=== PATIENT | female | born 1950 | race Caucasian/White ===

== ENCOUNTER → 2016-08-07 | Outpatient (CLI) | payer BC ==
[~2016-08-07] MED LIST: CHOL400T6 PO; FERR-26 PO; LISI1TAB5 PO; NIAC500C6 PO; OMEG1CAP6 PO; POTA20LI27 PO; SELE200T10 PO; SIMV40TA3 PO; SULF1TAB24 PO; UBID50CA PO
--- NOTE | 2016-08-07 13:24 | KCIC ---
Bilateral digital screening mammograms: Reason for examination: Routine screening. Comparison is made to previous studies dated 10/19/2014 and 09/06/2012. The skin and nipples show no abnormalities. No abnormal axillary lymph nodes are seen. The breast parenchyma shows scattered fibroglandular density. (Breast density: Category B.) There are no dominant masses, suspicious calcifications or architectural distortions. A few benign calcifications are present. Impression: No evidence of malignancy. Recommend routine screening. BI-RADS category 2: Benign "Our facility is accredited by the [employer] Mammography [employer]." This patient's information has been entered into a reminder system for the patient to be notified with the results of her examination and a target date for the next mammogram. Electronically signed by: Yani Arnold MD (08/07/2016 1:20 PM)
--- NOTE | 2016-08-07 15:34 | KCIC ---
History: . Comparison: None. Findings: Bone Densitometry was performed with dual photon absorption of the lumbar spine and left femoral neck. Lumbar Spine: Bone density is 1.183 g/cm2 for L1-L4. T-Score is 1.2. Z-score is 3.0. Left Femoral Neck: Bone density is 0.914 g/cm2. T-Score is -0.2. Z-score is 1.0. IMPRESSION: Bone mineral density of the lumbar spine and left femoral neck appears within normal limits. World Health definition of osteoporosis and osteopenia: Normal = T-Score at or above -1.0; osteopenia = T-score between -1.0 and -2.5; osteoporosis = T-score at or below -2.5 Electronically signed by: Donny Woods MD (08/07/2016 3:31 PM)
== END | disposition home or self-care (01) ==
LOC: KCIC MAMMO 11:03
PROVIDERS: ATTEND Internal Medicine
DX: Z12.31 Encounter for screening mammogram for malignant neoplasm of breast (principal); Z01.419 Encounter for gynecological examination (general) (routine) without abnormal findings; Z78.0 Asymptomatic menopausal state
CPT/HCPCS: 77080; G0202; 77067

== ENCOUNTER → 2017-08-25 | Outpatient (CLI) | payer BC | END | disposition home or self-care (01) | LOC: MAMMO 15:49 | DX: Z12.31 Encounter for screening mammogram for malignant neoplasm of breast (principal) | CPT/HCPCS: 77063; 77067 ==